=== PATIENT | male | born 1965 | race Caucasian/White ===

== ENCOUNTER 2022-03-26 06:24 | Day surgery (SDC) | payer OTHER, SELFPAY ==
[2022-03-26 06:36] VITALS: BMI 35.2
[2022-03-26 06:39] VITALS: BP 142/87; PULSE 76; RESP 18; TEMP 36.3; O2SAT 95
[2022-03-26] MEDS: Lactated Ringers 1,000 ML 50 ML IVCONT (06:53)
--- NOTE | 2022-03-26 07:26 | P.CONAN_ITS ---
HPI - Anesthesia Eval Consult details Narrative: For [facility] Active Problems Active Problems: All Active Problems (Updated 07/30/21 @ 15:09 by Codey Munoz MD) Physical exam (Acute) Hypertension (Acute) Hyperlipidemia (Acute) Obesity (Acute) Family History Family history of problems with anesthesia: No Surgical History Surgical History (Updated 03/25/22 @ 10:14 by Elaine Grant RN) S/P correction of deviated nasal septum History of Problems with Anesthesia: No Social History Social History Housing: House Patient Tobacco Use Status: Never used Tobacco e-Cigarette/Vaping Use: Never Used Second Hand Smoke Exposure: No Use of substances other than those prescribed or required for medical reasons: No Are you DNR?: No Advance Directives: No Advance Directives Information Provided: Yes Recently lost weight without trying: No How much weight loss: 2-13 pounds Nutrition Risks: No Nutritional Risk service: No Current occupational status: employed Cognitive needs: No Hearing needs: No Vision needs: No Meds Allergies Allergy/AdvReac Type Severity Reaction Status Date / Time Bees Allergy Unknown anaphylaxis Uncoded 07/30/21 14:25 Active Medications: Current Medications Lactated Ringer's (Lr) 1,000 mls @ 50 mls/hr IVCONT .Q20H IMAN Last Admin: 03/26/22 06:53 Dose: 50 mls/hr Sodium Biphosphate/Sodium Phosphate (Sodium Phosphate,[place]o-Dibasic 133 Ml Enema) 133 ml SD ONCE PRN PRN Reason: Poor Colonoscopy Prep Results Exam Exam Date and Time: March 26, 2022 0726 Height,Weight and Vital Signs: Height 5 ft 10 in Weight 111.13 kg Last Vital Signs Temp 97.4 F 03/26/22 06:39 Pulse 76 03/26/22 06:39 Resp 18 03/26/22 06:39 BP 142/87 H 03/26/22 06:39 Pulse Ox 95 03/26/22 06:39 O2 Del Method 03/26/22 06:39 Airway Mallampati Class: III TM Dist: <=3cm Neck ROM: Full Heart: ok Lungs: ok Assessment and Plan Assessment Anesthesia Assessment: Anesthesia Plan Discussed and Chart Reviewed Final Anesthetic Review Family History of Problems with Anesthesia: No History of Problems with Anesthesia: No NPO: Yes ASA Class: II Final Preanesthetic Review: No Changes in Pt Med Stat, Meds/Allgs Chart Reviewed, Consent Obtained/Reviewed and Anes Risks/Benef Reviewed Patient Risk: Intermediate Procedure Risk: Low Anesthetic Plan Anesthetic Plan: MAC: and Agree w/ Assess. and Plan Disposition: Standard PACU
--- NOTE | 2022-03-26 08:25 | PM.OP ---
Brief Operative Note Date of Service: 03/26/22 Pre-op diagnosis: Screening Post-op diagnosis: other (Polyps) Procedure: Colonoscopy to the cecum with biopsy and removal of polyps Surgeon: Joseph Coronel Anesthesia: MAC Was an Digital Music Instructor used for this Procedure?: No Estimated blood loss (mL): 2.0 Pathology: other (A. Polyp at 60cm B. Transverse colon polyp) Condition: stable Disposition: PACU
[2022-03-26 08:27] VITALS: BP 114/70; PULSE 84; RESP 18; TEMP 36.2; O2SAT 95
[2022-03-26 08:42] VITALS: BP 126/77; PULSE 74; RESP 20; TEMP 36.5; O2SAT 95
--- NOTE | 2022-03-26 09:29 | OP_ITS ---
SURGEON: Joseph Coronel MD INDICATIONS: The patient presents for evaluation of colorectal cancer screening. Full consent has been obtained from him for this, including risks of bleeding and perforation. PREOPERATIVE DIAGNOSIS: Colorectal cancer screening. POSTOPERATIVE DIAGNOSIS: PROCEDURE PERFORMED: Colonoscopy to the cecum with biopsy and removal of polyps. ESTIMATED BLOOD LOSS: COMPLICATIONS: ANESTHESIA: Monitored anesthesia care. ASSISTANTS: SPECIMENS: POSTOPERATIVE DIAGNOSES: Colorectal cancer screening, small colon polyps, mild sigmoid diverticulosis, small internal hemorrhoids. PROCEDURE IN DETAIL: The patient was placed in the left lateral decubitus position. The digital rectal exam revealed no abnormalities. The Olympus video pediatric colonoscope was entered into the rectum and advanced easily to the cecum. Once in the cecum, I did identify a normal-appearing cecal pouch with appendiceal orifice and a normal appearing ileocecal valve. The entire cecum appeared normal. The scope was slowly withdrawn assessing all mucosal surfaces carefully. Preparation was excellent. In the transverse colon and at 60 cm were less than 5 mm polyps, which were each biopsied and removed completely with a cold biopsy forceps. I did not visualize any other polyps, colitis, nor angiodysplasia. There was a mild amount of sigmoid diverticulosis. In the rectum, scope was retroflexed, visualizing small internal hemorrhoids but no other pathology. The rectal mucosa appeared normal. The scope was straightened and withdrawn from the patient. He tolerated the procedure well and was returned to the recovery area in stable condition. IMPRESSION: 1. Small colon polyps. 2. Diverticulosis. 3. Internal hemorrhoids. PLAN: The results of the pathology will be checked. If these are tubular adenomas, I would recommend a followup colonoscopy in 5 years. If they are only hyperplastic, I would recommend a followup colonoscopy in 10 years. He will otherwise see me on a p.r.n. basis. MD EVELYNE Crawford/HAJA / [id number] JOSH
== END 2022-03-26 08:58 | disposition home or self-care (01) ==
PROVIDERS: PCP Internal Medicine; Visit Provider Internal Medicine
PROC: 0DJD8ZZ Inspection of Lower Intestinal Tract, Via Natural or Artificial Opening Endoscopic (ICD-10-PCS; CPT 45378; principal; 2022-03-26 07:30)
DX: Z12.11 Encounter for screening for malignant neoplasm of colon (principal); D12.3 Benign neoplasm of transverse colon; K63.5 Polyp of colon; K57.30 Diverticulosis of large intestine without perforation or abscess without bleeding; K64.8 Other hemorrhoids; I10 Essential (primary) hypertension; E78.5 Hyperlipidemia, unspecified; Z79.899 Other long term (current) drug therapy
CPT/HCPCS: 45380; 88305

== ENCOUNTER 2022-10-01 08:51 | Outpatient (AMB) | payer OTHER, SELFPAY ==
--- NOTE | 2022-10-01 08:52 | A.OFFPC_ITS ---
Vital Signs 10/01/22 08:54 Height 5 ft 10 in Weight 255 lb 4 oz BMI 36.6 BP 120/70 Blood Pressure Location Lt brachial Position Sitting Pulse 79 Pulse Source Pulse Oximeter Pulse Oximetry (%) 93 Oxygen Delivery Method Room Air Intake Visit Reasons: Annual PE Intake Note: Patient is here today for a physical. Django Developer Required: No Residential Subcontractor: Not Required per policy Accompanied by: Self / Same As Patient Allergies Bees Allergy (Unknown, Uncoded 10/01/22 08:54) anaphylaxis Medication List - Last Reconciled 10/01/22 by Codey Munoz MD fenofibrate 160 mg PO DAILY valsartan 40 mg PO BID Tobacco use date assessed: 10/01/22 Dental Screening Dental Screen Date: 10/01/22 Did you have a dental visit in the last 12 months?: Yes Did you have a dental problem in the last 6 months where you did not have access to dental care?: No Was dental information given to patient?: Patient has dentist HPI Annual PE HPI Details HTN and hyperlipidemia PFSH Surgical History (Updated 10/01/22 @ 08:[address]) History of colonoscopy S/P correction of deviated nasal septum Social History (Updated 10/01/22 @ 08:[address]) Housing: House Alcohol intake: current Alcohol intake frequency: a few times a week Patient Tobacco Use Status: Never used Tobacco e-Cigarette/Vaping Use: Never Used Second Hand Smoke Exposure: No service: No Current occupational status: employed Cognitive needs: No Hearing needs: No Vision needs: No Questionnaire PHQ-9 Over the last 2 weeks, how often have you been bothered by any of the following problems? 1. Little interest or pleasure in doing things: not at all 2. Feeling down, depressed, or hopeless: not at all 3. Trouble falling or staying asleep, or sleeping too much: not at all 4. Feeling tired or having little energy: not at all 5. Poor appetite or overeating: not at all 6. Feeling bad about yourself - or that you are a failure or have let yourself or your family down: not at all 7. Trouble concentrating on things, such as reading the newspaper or watching television: not at all 8. Moving or speaking so slowly that other people could have noticed. Or the opposite - being so fidgety or restless that you have been moving around a lot more than usual: not at all 9. Thoughts that you would be better off or of hurting yourself in some way: not at all Total score: 0 Depression Screening Interpretation: Negative [id number] - PHQ-9 Billing: Yes Source: Developed by Drs. Joseph Mccloud, Safia Payan, Glenroy Denis and colleagues, with an educational tamia from [employer]. Thrive Questionnaire Date Thrive assessed: 10/01/22 I am a: Patient What is your living situation today?: I have a steady place to live Within the past 12 months, did the food you bought not last and you didn't have the money to get more?: Never true Within the past 12 months, did you worry whether your food would run out before you got money to buy more?: Never true Do you have trouble paying for medicines?: No Do you have trouble getting transportation to medical appointments?: No Do you have trouble paying your heating and electricity bill?: No Do you have trouble taking care of your child, family member or friend?: No Do you have trouble with day-to-day activities such as bathing, preparing meals, shopping, managing finances, etc.?: No Are you currently unemployed and looking for a job?: No Are you interested in more education?: No Currently or been in a relationship where the following occur: no concerns reported AUDIT C Alcohol Use Questionnaire (AUDIT-C) 1. How often do you have a drink containing alcohol?: 2-3 times a week 2. How many drinks containing alcohol do you have on a typical day when you are drinking?: 1 or 2 Total Score: 3 NINO-7 AMB Questionnaire NINO-7 Date NINO - 7 assessed: 10/01/22 Feeling nervous, anxious, or on edge: 0 = Not at all Not being able to stop or control worryin = Not at all Worrying too much about different things: 0 = Not at all Trouble relaxin = Not at all Being so restless that it is hard to sit still: 0 = Not at all Becoming easily annoyed or irritable: 0 = Not at all Feeling afraid as if something awful might happen: 0 = Not at all Total NINO-7 score (0-4 normal; 5-9 mild; 10-14 moderate; 15-21 severe): 0 Source: Developed by Drs. Joseph Mccloud, Safia Payan, Glenroy Denis and colleagues, with an educational tamia from [employer]. NINO-7 Assessment Billing NINO-7 Assessment Tool: NINO-7 Assessment 88584 Review of Systems Const Denies chills, Denies fatigue, Denies headache(s) and Denies weight loss Eyes Denies change in vision, Denies diplopia and Denies eye pain ENT Denies vertigo, Denies dizziness, Denies headache(s) and Denies nasal discharge Card Denies chest pain, Denies rapid heart rate and Denies dyspnea on exertion Resp Denies chest congestion, Denies cough, Denies pain with cough and Denies dyspnea on exertion GI Denies abdominal pain, Denies hematochezia and Denies change in bowel habits Musc Denies myalgias, Denies arthralgias and Denies joint swelling Skin/Breast Denies lesions and Denies unusual bruising Neuro Denies vertigo, Denies dizziness, Denies headache(s) and Denies focal weakness Endo Denies fatigue Physical exam (Primary Care) Vital Signs: Last Vital Signs Pulse 79 10/01/22 08:54 BP 120/70 10/01/22 08:54 Pulse Ox 93 10/01/22 08:54 Oxygen Delivery Method Room Air 10/01/22 08:54 BMI result Body Mass Index 36.6 obesity BMI Assessment/Plan discussion: High BMI High, discussed plan: lifestyle, weight reduction, dietary and physical activity Tobacco/Smoking Status: Tobacco use Status Tobacco use date assessed 10/01/22 10/01/22 08:59 Patient Tobacco Use Status Never used Tobacco 10/01/22 08:57 e-Cigarette/Vaping Use Never Used 10/01/22 08:57 PHQ-9: PHQ-9 Score PHQ-9: Total score 0 10/01/22 08:59 Depression Screening Interpretation: Negative Thrive Assessment: Date of Thrive Assessment Date Thrive assessed 10/01/22 10/01/22 08:59 Currently or been in a relationship where the following occur: no concerns reported Const General: cooperative, healthy appearing and no acute distress Orientation/consciousness: oriented to person, oriented to place and oriented to time HENMT Head: Yes normal to inspection, Yes normocephalic and Yes atraumatic Mouth: Normal oral and palatal mucosa present and tongue normal Throat: Yes posterior oropharynx normal and Yes uvula midline Eyes General: appearance normal, both eyes and all related structures Neck Neck: Yes normal visual inspection, Yes full ROM and Yes no lymphadenopathy Thyroid: Thyroid normal Carotids: normal carotid upstroke Chest Chest palpation & inspection: normal inspection of the chest Resp Effort & Inspection: normal respiratory effort and able to speak in complete sentences Auscultation: clear to auscultation bilaterally Cardio Jugular venous distension: no JVD Palpation: normal PMI Rate: regular rate Rhythm: regular rhythm Heart sounds: S1 normal heart sound present and S2 normal heart sound present GI Inspection: Yes normal to inspection Palpation (GI): Soft to palpation and No hepatosplenomegaly present Auscultation: normal bowel sounds General: Yes no CVA tenderness Back/Spine/Pelvis Back: no CVA tenderness Skin General skin exam: no rashes or lesions noted Neuro General: oriented to person, oriented to place and oriented to time Extrem General: Yes normal to inspection and Yes full ROM Assessment and Plan Assessment & Plan (1) Physical exam: Code(s): Z00.00 - Encounter for general adult medical examination without abnormal findings Plan: do labs (2) Hypertension: Code(s): I10 - Essential (primary) hypertension Plan: stable; same rx (3) Hyperlipidemia: Code(s): E78.5 - Hyperlipidemia, unspecified Plan: stable; same rx (4) Obesity: Code(s): E66.9 - Obesity, unspecified Plan: as above Orders: Orders Comprehensive [place]. Panel Fast Today N28.9 - Disorder of kidney and ureter, unspecified Lipid Panel Today E78.5 - Hyperlipidemia, unspecified Complete Blood Count Auto Diff Today D64.9 - Anemia, unspecified Medications: Refilled fenofibrate 160 mg PO DAILY 90 tabs 8RF Coding Level of Care Code Est Pt Prev Care 40-64y(44350) Diagnoses Physical exam Z00.00 Hypertension I10 Hyperlipidemia E78.5 Obesity E66.9 Additional Codes NINO-7 Assessment Billing - NINO-7 Assessment Tool: NINO-7 Assessment [id number] ([id number])
[2022-10-01 08:54] VITALS: BP 120/70; PULSE 79; O2SAT 93; BMI 36.6
== END 2022-10-01 09:12 | disposition home or self-care (01) ==
PROVIDERS: PCP Internal Medicine; Visit Provider Internal Medicine
DX: Z00.00 Encounter for general adult medical examination without abnormal findings (principal); I10 Essential (primary) hypertension; E78.5 Hyperlipidemia, unspecified; Z68.36 Body mass index [BMI] 36.0-36.9, adult; E66.9 Obesity, unspecified
CPT/HCPCS: 99396

== ENCOUNTER 2023-11-02 10:04 | Outpatient (AMB) | payer OTHER, SELFPAY ==
[2023-11-02 10:06] VITALS: BP 142/94; PULSE 80; O2SAT 97; BMI 36.9
--- NOTE | 2023-11-02 10:06 | A.OFFPC_ITS ---
Vital Signs 11/02/23 10:06 Height 5 ft 10 in Weight 257 lb BMI 36.9 BP 142/94 H Blood Pressure Location Lt brachial Position Sitting Pulse 80 Pulse Source Pulse Oximeter Pulse Oximetry (%) 97 Oxygen Delivery Method Room Air Intake Visit Reasons: Annual Exam Desk Interviewer Required: No Accompanied by: Self / Same As Patient Allergies Bees Allergy (Unknown, Uncoded 11/02/23 10:06) anaphylaxis Medication List - Last Reconciled 11/02/23 by Codey Munoz MD fenofibrate 160 mg PO DAILY valsartan 40 mg PO BID Tobacco use date assessed: 11/02/23 Dental Screening Dental Screen Date: 11/02/23 Did you have a dental visit in the last 12 months?: No Did you have a dental problem in the last 6 months where you did not have access to dental care?: No Was dental information given to patient?: Patient has dentist HPI Annual Exam HPI Details hypertension and hyperlipidemia on rx; doing well and compliant [facility] Surgical History (Updated 10/01/22 @ 08:[address]) History of colonoscopy S/P correction of deviated nasal septum Social History (Updated 10/01/22 @ 08:[address]) Housing: House Alcohol intake: current Alcohol intake frequency: a few times a week Patient Tobacco Use Status: Never used Tobacco Tobacco use type: Cigarette e-Cigarette/Vaping Use: Never Used Second Hand Smoke Exposure: No service: No Current occupational status: employed Cognitive needs: No Hearing needs: No Vision needs: No Questionnaire PHQ-9 Over the last 2 weeks, how often have you been bothered by any of the following problems? 1. Little interest or pleasure in doing things: not at all 2. Feeling down, depressed, or hopeless: not at all 3. Trouble falling or staying asleep, or sleeping too much: not at all 4. Feeling tired or having little energy: not at all 5. Poor appetite or overeating: not at all 6. Feeling bad about yourself - or that you are a failure or have let yourself or your family down: not at all 7. Trouble concentrating on things, such as reading the newspaper or watching television: not at all 8. Moving or speaking so slowly that other people could have noticed. Or the opposite - being so fidgety or restless that you have been moving around a lot more than usual: not at all 9. Thoughts that you would be better off or of hurting yourself in some way: not at all Total score: 0 Source: Developed by Drs. Joseph Mccloud, Safia Payan, Glenroy Denis and colleagues, with an educational tamia from [employer]. Thrive Questionnaire Date Thrive assessed: 11/02/23 I am a: Patient What is your living situation today?: I have a steady place to live Within the past 12 months, did the food you bought not last and you didn't have the money to get more?: Never true Within the past 12 months, did you worry whether your food would run out before you got money to buy more?: Never true Do you have trouble paying for medicines?: No Do you have trouble getting transportation to medical appointments?: No Do you have trouble paying your heating and electricity bill?: No Do you have trouble taking care of your child, family member or friend?: No Do you have trouble with day-to-day activities such as bathing, preparing meals, shopping, managing finances, etc.?: No Are you currently unemployed and looking for a job?: No Are you interested in more education?: No Please select the resources that you would like help with: None Currently or been in a relationship where the following occur: No concerns reported THRIVE Score: 0 AUDIT C Alcohol Use Questionnaire (AUDIT-C) 1. How often do you have a drink containing alcohol?: 2-4 times a month 2. How many drinks containing alcohol do you have on a typical day when you are drinking?: 3 or 4 3. How often do you have six or more drinks on one occasion?: Monthly Total Score: 5 NINO-7 AMB Questionnaire NINO-7 Date NINO - 7 assessed: 11/02/23 Feeling nervous, anxious, or on edge: 0 = Not at all Not being able to stop or control worryin = Not at all Worrying too much about different things: 0 = Not at all Trouble relaxin = Not at all Being so restless that it is hard to sit still: 0 = Not at all Becoming easily annoyed or irritable: 0 = Not at all Feeling afraid as if something awful might happen: 0 = Not at all Total NINO-7 score (0-4 normal; 5-9 mild; 10-14 moderate; 15-21 severe): 0 Source: Developed by Drs. Joseph Mccloud, Safia Payan, Glenroy Denis and colleagues, with an educational tamia from [employer]. Review of Systems Const Denies chills, Denies fatigue, Denies headache(s) and Denies weight loss Eyes Denies change in vision, Denies diplopia and Denies eye pain ENT Denies vertigo, Denies dizziness, Denies headache(s) and Denies nasal discharge Card Denies chest pain, Denies rapid heart rate and Denies dyspnea on exertion Resp Denies chest congestion, Denies cough, Denies pain with cough and Denies dyspnea on exertion GI Denies abdominal pain, Denies hematochezia and Denies change in bowel habits Musc Denies myalgias, Denies arthralgias and Denies joint swelling Skin/Breast Denies lesions and Denies unusual bruising Neuro Denies vertigo, Denies dizziness, Denies headache(s) and Denies focal weakness Endo Denies fatigue Physical exam (Primary Care) Vital Signs: Last Vital Signs Pulse 80 11/02/23 10:06 BP 142/94 H 11/02/23 10:06 Pulse Ox 97 11/02/23 10:06 Oxygen Delivery Method Room Air 11/02/23 10:06 BMI result Body Mass Index 36.9 Tobacco/Smoking Status: Tobacco use Status Tobacco use date assessed 11/02/23 11/02/23 10:07 Patient Tobacco Use Status Never used Tobacco 11/02/23 10:07 Tobacco use type Cigarette 11/02/23 10:07 e-Cigarette/Vaping Use Never Used 11/02/23 10:07 PHQ-9: PHQ-9 Score PHQ-9: Total score 0 11/02/23 10:07 Thrive Assessment: Date of Thrive Assessment Date Thrive assessed 11/02/23 11/02/23 10:07 Currently or been in a relationship where the following occur: No concerns reported Const General: cooperative, healthy appearing and no acute distress Orientation/consciousness: oriented to person, oriented to place and oriented to time HENMT Head: Yes normal to inspection, Yes normocephalic and Yes atraumatic Mouth: Normal oral and palatal mucosa present and tongue normal Throat: Yes posterior oropharynx normal and Yes uvula midline Eyes General: appearance normal, both eyes and all related structures Neck Neck: Yes normal visual inspection, Yes full ROM and Yes no lymphadenopathy Thyroid: Thyroid normal Carotids: normal carotid upstroke Chest Chest palpation & inspection: normal inspection of the chest Resp Effort & Inspection: normal respiratory effort and able to speak in complete sentences Auscultation: clear to auscultation bilaterally Cardio Jugular venous distension: no JVD Palpation: normal PMI Rate: regular rate Rhythm: regular rhythm Heart sounds: S1 normal heart sound present and S2 normal heart sound present GI Inspection: Yes normal to inspection Palpation (GI): Soft to palpation and No hepatosplenomegaly present Auscultation: normal bowel sounds General: Yes no CVA tenderness Back/Spine/Pelvis Back: no CVA tenderness Skin General skin exam: no rashes or lesions noted Neuro General: oriented to person, oriented to place and oriented to time Extrem General: Yes normal to inspection and Yes full ROM Assessment and Plan Assessment & Plan (1) Physical exam: Code(s): Z00.00 - Encounter for general adult medical examination without abnormal findings Plan: stable; do labs (2) Hypertension: Code(s): I10 - Essential (primary) hypertension Plan: stable; same rx (3) Hyperlipidemia: Code(s): E78.5 - Hyperlipidemia, unspecified Plan: stable; same rx Orders: Orders Comprehensive [place]. Panel Fast Today Z13.9 - Encounter for screening, unspecified Prostate Specific Antigen Scr Today Z00.00 - Encounter for general adult medical examination without abnormal findings Lipid Panel Today Z13.220 - Encounter for screening for lipoid disorders Thyroid Stimulating Hormone Today Z13.29 - Encounter for screening for other suspected endocrine disorder Complete Blood Count Auto Diff Today Z13.0 - Encounter for screening for diseases of the blood and blood-forming organs and certain disorders involving the immune mechanism Coding Level of Care Code Est Pt Prev Care 40-64y(17014) Diagnoses Physical exam Z00.00 Hypertension I10 Hyperlipidemia E78.5
== END 2023-11-02 10:29 | disposition home or self-care (01) ==
PROVIDERS: PCP Internal Medicine; Visit Provider Internal Medicine
DX: Z00.00 Encounter for general adult medical examination without abnormal findings (principal); I10 Essential (primary) hypertension; E78.5 Hyperlipidemia, unspecified
CPT/HCPCS: 99396

== ENCOUNTER 2023-11-02 10:38 | Outpatient (REF) | payer OTHER, SELFPAY ==
[2023-11-02 13:10] LABS: MANUAL DIFF FLAG NO
[2023-11-02 13:11] LABS: Basophils Absolute Auto 0.1 X10*3/uL (0.0-0.2); Eosinophils Absolute Auto 0.2 X10*3/uL (0.0-0.4); Eosinophils Percent Auto 4.3 % (0-4); Hematocrit 41.4 % (42.0-52.0); Hemoglobin 14.2 g/dl (14.0-18.0); Imm Gran Abs Auto 0.02 X10*3/uL (0.00-0.03); Imm Gran Pct Auto 0.4 % (0.0-0.4); Lymphocytes Absolute Auto 1.4 X10*3/uL (1.2-4.9); Mean Corpuscular HGB Conc 34.3 g/dl (31.0-36.0); Mean Corpuscular Hemoglobin 32.1 pg (27.0-33.0); Mean Corpuscular Volume 93.5 fL (80.0-98.0); Mean Platelet Volume 9.2 fL (9.4-12.4); Monocytes Absolute Auto 0.7 X10*3/uL (0.1-1.2); Monocytes Percent Auto 13.4 % (2-11); Neutrophils Absolute Auto 2.6 x10*3/uL (2.0-8.3); Neutrophils Percent Auto 51.9 % (45-73); Platelet Count 278 X10*3/uL (160-400); Red Blood Count 4.43 X10*6/uL (4.60-5.80); Red Cell Distribution Width 11.9 % (11.0-16.0); White Blood Count 4.9 X10*3/uL (4.8-10.8)
[2023-11-02 13:36] LABS: Alanine Aminotransferase 19 U/L (0-40); Albumin Level 4.2 g/dL (3.5-5.0); Alkaline Phosphatase 32 U/L (39-117); Anion Gap 12 (12-20); Aspartate Amino Transferase 16 U/L (5-37); Bilirubin Total 0.4 mg/dL (0.0-1.0); Blood Urea Nitrogen 17 mg/dL (9-16); Calcium 9.5 mg/dL (8.4-10.2); Carbon Dioxide 26 mmol/L (22-29); Chloride 105 mmol/L (96-108); Cholesterol 170 mg/dL (<200); Estimated Glomerular Filt Rate > 60; Glucose Fasting 122 mg/dL (60-99); HDL Cholesterol 39 mg/dL (>40); LDL Cholesterol Calculated 87 mg/dL (<100); Potassium 4.4 mmol/L (3.3-5.1); Sodium 139 mmol/L (135-145); Total Protein 7.4 g/dL (6.5-8.0); Triglycerides 223 mg/dL (<150)
[2023-11-02 13:47] LABS: Prostate Specific Antigen Scr 1.12 ng/mL (<0.05-4.0)
[2023-11-02 13:51] LABS: Thyroid Stimulating Hormone 1.95 uIU/mL (0.32-4.0)
== END 2023-11-02 10:39 | disposition home or self-care (01) ==
LOC: HO.10HDL 10:38
PROVIDERS: Visit Provider Internal Medicine
DX: Z00.00 Encounter for general adult medical examination without abnormal findings (principal); Z12.5 Encounter for screening for malignant neoplasm of prostate; Z13.6 Encounter for screening for cardiovascular disorders; Z13.220 Encounter for screening for lipoid disorders; Z13.29 Encounter for screening for other suspected endocrine disorder; Z13.0 Encounter for screening for diseases of the blood and blood-forming organs and certain disorders involving the immune mechanism; Z13.9 Encounter for screening, unspecified
CPT/HCPCS: 36415; 80053; 80061; 84153; 84443; 85025

== ENCOUNTER 2024-11-05 08:50 | Outpatient (AMB) | payer OTHER, SELFPAY ==
--- NOTE | 2024-11-05 08:53 | A.OFFPC_ITS ---
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 Accompanied by: Self / Same As Patient Allergies Bees Allergy (Unknown, Uncoded 11/02/23 10:06) anaphylaxis Tobacco use date assessed: 11/02/23 Dental Screening Dental Screen Date: 11/05/24 Did you have a dental visit in the last 12 months?: No Did you have a dental problem in the last 6 months where you did not have access to dental care?: No Was dental information given to patient?: Patient has dentist [facility] Surgical History History of colonoscopy S/P correction of deviated nasal septum Social History Housing: House Alcohol intake: current Alcohol intake frequency: a few times a week Patient Tobacco Use Status: Never used Tobacco Tobacco use type: Cigarette e-Cigarette/Vaping Use: Never Used Second Hand Smoke Exposure: No service: No Current occupational status: employed Cognitive needs: No Hearing needs: No Vision needs: No Questionnaire PHQ-9 Over the last 2 weeks, how often have you been bothered by any of the following problems? 1. Little interest or pleasure in doing things: not at all 2. Feeling down, depressed, or hopeless: not at all 3. Trouble falling or staying asleep, or sleeping too much: not at all 4. Feeling tired or having little energy: not at all 5. Poor appetite or overeating: not at all 6. Feeling bad about yourself - or that you are a failure or have let yourself or your family down: not at all 7. Trouble concentrating on things, such as reading the newspaper or watching television: not at all 8. Moving or speaking so slowly that other people could have noticed. Or the opposite - being so fidgety or restless that you have been moving around a lot more than usual: not at all 9. Thoughts that you would be better off or of hurting yourself in some way: not at all Total score: 0 38086 - PHQ-9 Daring: Yes Source: Developed by Drs. Joseph Mccloud, Safia Payan, Glenroy Denis and colleagues, with an educational tamia from [employer]. Thrive Questionnaire Date Thrive assessed: 11/05/24 I am a: Patient What is your living situation today?: I have a steady place to live Within the past 12 months, did the food you bought not last and you didn't have the money to get more?: Never true Within the past 12 months, did you worry whether your food would run out before you got money to buy more?: Never true Do you have trouble paying for medicines?: No Do you have trouble getting transportation to medical appointments?: No Do you have trouble paying your heating and electricity bill?: No Do you have trouble taking care of your child, family member or friend?: No Do you have trouble with day-to-day activities such as bathing, preparing meals, shopping, managing finances, etc.?: No Are you currently unemployed and looking for a job?: No Are you interested in more education?: No Please select the resources that you would like help with: None Currently or been in a relationship where the following occur: No concerns reported THRIVE Score: 0 AUDIT C Alcohol Use Questionnaire (AUDIT-C) 1. How often do you have a drink containing alcohol?: 2-3 times a week 2. How many drinks containing alcohol do you have on a typical day when you are drinking?: 3 or 4 Total Score: 4 NINO-7 AMB Questionnaire NINO-7 Date NINO - 7 assessed: 11/05/24 Feeling nervous, anxious, or on edge: 0 = Not at all Not being able to stop or control worryin = Not at all Worrying too much about different things: 0 = Not at all Trouble relaxin = Not at all Being so restless that it is hard to sit still: 0 = Not at all Becoming easily annoyed or irritable: 0 = Not at all Feeling afraid as if something awful might happen: 0 = Not at all Total NINO-7 score (0-4 normal; 5-9 mild; 10-14 moderate; 15-21 severe): 0 Source: Developed by Safia Porter Kurt Kroenke and colleagues, with an educational tamia from [employer]. NINO-7 Assessment Billing NINO-7 Assessment Tool: NINO-7 Assessment 35160 Physical exam (Primary Care) Tobacco/Smoking Status: Tobacco use Status Tobacco use date assessed 11/02/23 11/02/23 10:07 Patient Tobacco Use Status Never used Tobacco 11/02/23 10:07 Tobacco use type Cigarette 11/02/23 10:07 e-Cigarette/Vaping Use Never Used 11/02/23 10:07 Thrive Assessment: Date of Thrive Assessment Date Thrive assessed 11/02/23 11/02/23 10:07 Currently or been in a relationship where the following occur: No concerns reported Coding Additional Codes PHQ-9 - 56096 - PHQ-9 Billing: Yes ([id number]) NINO-7 Assessment Billing - NINO-7 Assessment Tool: NINO-7 Assessment 91462 ([id number])
[2024-11-05 08:54] VITALS: BP 158/90; PULSE 73; RESP 18; TEMP 36.9; O2SAT 94; BMI 38.3
--- NOTE | 2024-11-05 09:06 | A.OFFPC_ITS ---
Vital Signs 11/05/24 08:54 Height 5 ft 10 in Weight 267 lb 2 oz BMI 38.3 BP 158/90 H Blood Pressure Location Lt brachial Position Sitting Respiration 18 Pulse 73 Temp 98.5 F Temp Source Oral Pulse Oximetry (%) 94 Oxygen Delivery Method Room Air Intake Visit Reasons: ARTEM LAIERNESTINE/Physical exam Allergies Bees Allergy (Unknown, Uncoded 11/05/24 09:07) anaphylaxis Tobacco use date assessed: 11/02/23 Dental Screening Dental Screen Date: 11/05/24 Did you have a dental visit in the last 12 months?: No Did you have a dental problem in the last 6 months where you did not have access to dental care?: No Was dental information given to patient?: Patient has dentist HPI ARTEM VIDHYA/Physical exam HPI Details Presenting for Annual physical and transition of care from Dr. Munoz Dentist:up to date Eye:reports that he did not do the Snellen: Right: Left: Corrected vision: yes -cheaters STI screening: Colonoscopy: 2022-repeat in 5 years Pap Smer:n/a PHQ-9: Flu: not really COVID: x3 Tdap:Due-given in office today Diet: regular Exercise:Reports being too busy at work and unable to workout The patient is a 59-year-old male presenting for a wellness visit and management of chronic conditions. The patient has a history of hypertension, with blood pressure readings fluctuating significantly. He reports that his blood pressure was 117/[address] a friend's place, but it has been elevated during today's visit. The patient is currently on valsartan, which he took this morning, and fenofibrate for hypertriglyceridemia. The patient has hypertriglyceridemia, with previous levels in the 500s, now trending downwards. He is on fenofibrate to manage this condition. The patient is slightly anemic, with red blood cells 4.43 and Hct 41.4. He reports allergies and has experienced nasal fractures multiple times due to accidents, which may contribute to his snoring. The patient has received a tetanus vaccination today as part of his preventative care. [facility] Surgical History History of colonoscopy S/P correction of deviated nasal septum Social History Housing: House Alcohol intake: current Alcohol intake frequency: a few times a week Patient Tobacco Use Status: Never used Tobacco Tobacco use type: Cigarette e-Cigarette/Vaping Use: Never Used Second Hand Smoke Exposure: No service: No Current occupational status: employed Cognitive needs: No Hearing needs: No Vision needs: No Questionnaire PHQ-9 Over the last 2 weeks, how often have you been bothered by any of the following problems? 1. Little interest or pleasure in doing things: not at all 2. Feeling down, depressed, or hopeless: not at all 3. Trouble falling or staying asleep, or sleeping too much: not at all 4. Feeling tired or having little energy: not at all 5. Poor appetite or overeating: not at all 6. Feeling bad about yourself - or that you are a failure or have let yourself or your family down: not at all 7. Trouble concentrating on things, such as reading the newspaper or watching television: not at all 8. Moving or speaking so slowly that other people could have noticed. Or the opposite - being so fidgety or restless that you have been moving around a lot more than usual: not at all 9. Thoughts that you would be better off or of hurting yourself in some way: not at all Total score: 0 Depression Screening Interpretation: Negative Depression Screening Done: Yes 57856 - PHQ-9 Billing: Yes Source: Developed by Drs. Joseph Mccloud, Safia Payan, Glenroy Denis and colleagues, with an educational tamia from [employer]. Thrive Questionnaire Date Thrive assessed: 11/05/24 I am a: Patient What is your living situation today?: I have a steady place to live Within the past 12 months, did the food you bought not last and you didn't have the money to get more?: Never true Within the past 12 months, did you worry whether your food would run out before you got money to buy more?: Never true Do you have trouble paying for medicines?: No Do you have trouble getting transportation to medical appointments?: No Do you have trouble paying your heating and electricity bill?: No Do you have trouble taking care of your child, family member or friend?: No Do you have trouble with day-to-day activities such as bathing, preparing meals, shopping, managing finances, etc.?: No Are you currently unemployed and looking for a job?: No Are you interested in more education?: No Please select the resources that you would like help with: None Currently or been in a relationship where the following occur: No concerns reported THRIVE Score: 0 AUDIT C Alcohol Use Questionnaire (AUDIT-C) 1. How often do you have a drink containing alcohol?: 2-3 times a week 2. How many drinks containing alcohol do you have on a typical day when you are drinking?: 3 or 4 Total Score: 4 Score Reviewed/Action Taken: Yes NINO-7 AMB Questionnaire NINO-7 Date NINO - 7 assessed: 11/05/24 Feeling nervous, anxious, or on edge: 0 = Not at all Not being able to stop or control worryin = Not at all Worrying too much about different things: 0 = Not at all Trouble relaxin = Not at all Being so restless that it is hard to sit still: 0 = Not at all Becoming easily annoyed or irritable: 0 = Not at all Feeling afraid as if something awful might happen: 0 = Not at all Total NINO-7 score (0-4 normal; 5-9 mild; 10-14 moderate; 15-21 severe): 0 Source: Developed by Drs. Joseph Mccloud, Safia Payan, Glenroy walters nd colleagues, with an educational tamia from [employer]. NINO-7 Assessment Billing NINO-7 Assessment Tool: NINO-7 Assessment 60242 Review of Systems Const Denies headache(s) Eyes Denies loss of vision ENT Denies vertigo, Denies dizziness, Denies headache(s) and Denies sore throat Card Denies chest pain, Denies leg edema and Denies lightheadedness Resp Denies cough, Denies hemoptysis and Denies wheezing GI Denies abdominal pain, Denies melena, Denies constipation, Denies diarrhea and Denies vomiting Denies dysuria, Denies urinary frequency and Denies urinary urgency Musc Denies arthralgias, Denies joint swelling, Denies numbness and Denies tingling Neuro Denies Abnormal speech present, Denies behavioral changes, Denies vertigo, Denies dizziness, Denies headache(s), Denies loss of vision, Denies memory loss, Denies numbness and Denies tingling Psych Denies anxiety, Denies behavioral changes, Denies depression, Denies memory loss and Denies panic attacks Erick/Lymph Denies easy bleeding and Denies easy bruising Aller/Immun Denies wheezing Physical exam (Primary Care) Vital Signs: Last Vital Signs Temp 98.5 F 11/05/24 08:54 Pulse 73 11/05/24 08:54 Resp 18 11/05/24 08:54 BP 158/90 H 11/05/24 08:54 Pulse Ox 94 11/05/24 08:54 Oxygen Delivery Method Room Air 11/05/24 08:54 BMI result Body Mass Index 38.3 Tobacco/Smoking Status: Tobacco use Status Tobacco use date assessed 11/02/23 11/05/24 09:10 Patient Tobacco Use Status Never used Tobacco 11/05/24 09:10 Tobacco use type Cigarette 11/05/24 09:10 e-Cigarette/Vaping Use Never Used 11/05/24 09:10 PHQ-9: PHQ-9 Score PHQ-9: Total score 0 11/05/24 09:10 Depression Screening Interpretation: Negative Thrive Assessment: Date of Thrive Assessment Date Thrive assessed 11/05/24 11/05/24 09:10 Currently or been in a relationship where the following occur: No concerns reported Const General: healthy appearing, no acute distress, alert and awake Nutritional Appearance: well nourished Orientation/consciousness: oriented to person, oriented to place and oriented to time HENMT Ears: TM's normal bilaterally General nose exam: Normal nasal mucous membranes and turbinates present Eyes Conjunctivae: conjunctivae normal Sclerae: sclerae normal Pupils: Equal, round and reactive pupils present Neck Neck: Yes no lymphadenopathy and Yes no JVD Thyroid: Thyroid normal Carotids: no bruits Resp Effort & Inspection: normal respiratory effort and not tachypneic Auscultation: no crackles, no rales, no rhonchi and no wheezes Cardio Rate: regular rate Rhythm: regular rhythm Heart sounds: no murmurs and normal S1 and S2 GI Palpation (GI): Soft to palpation, nontender, no hepatomegaly and no splenomegaly Auscultation: normal bowel sounds Skin General skin exam: no rashes or lesions noted and dry skin Neuro General: oriented to person, oriented to place and oriented to time Cranial nerves: Yes Equal, round and reactive pupils present Speech: No Abnormal speech present Gait exam (Neuro): Normal gait present Motor exam (neuro): no tremor noted Deep tendon reflexes (DTR's): Right triceps reflex intensity grade: 2+, Left triceps reflex intensity grade: 2+, Rt Biceps (C5, C6): 2+, Left biceps reflex intensity grade: 2+, Right brachioradialis reflex intensity grade: 2+, Left brachioradialis reflex intensity grade: 2+, Right patellar reflex intensity grade: 2+ and Left patellar reflex intensity grade: 2+ Extrem Right upper extremity: full ROM Left upper extremity: full ROM Right lower extremity: full ROM; no edema Left lower extremity: full ROM; no edema Psych Mental Status: mental status grossly normal Speech and movement: Normal speech and movement present Affect: normal affect Attitude: cooperative Thought process: Normal thought process present Coding Level of Care Code New Pt Prev Care 40-64y(71986) Diagnoses Physical exam Z00.00 Class 2 severe obesity with serious comorbidity and body mass index (BMI) of 38.0 to 38.9 in adult, unspecified obesity type E66.812; E66.01; Z68.38 Obesity type: unspecified obesity type Obesity classification: adult class 2 (BMI 35 - 39.9) Serious obesity comorbidity presence: with serious comorbidity Body mass index: BMI 38.0-38.9 Pure hypertriglyceridemia E78.1 Hyperlipidemia type: pure hypertriglyceridemia Hypertension, unspecified type I10 Hypertension type: unspecified Anemia, unspecified type D64.9 Anemia type: unspecified type Additional Codes PHQ-9 - 17918 - PHQ-9 Billing: Yes ([id number]) NINO-7 Assessment Billing - NINO-7 Assessment Tool: NINO-7 Assessment 93734 ([id number]) Time Spent (min) 35 Assessment & Plan Assessment & Plan (1) Physical exam: Code(s): Z00.00 - Encounter for general adult medical examination without abnormal findings Category: Medical Plan: 59-year-old male here for physical. Reviewed preventative guidelines and previous labs from 2023. New labs order for patient to complete as soon as he can. The patient had a colonoscopy in 2022 and is scheduled to repeat in 2027. Tdap given in office today (2) Obesity: Code(s): E66.9 - Obesity, unspecified Category: Medical Qualifiers: Obesity type: unspecified obesity type Obesity classification: adult class 2 (BMI 35 - 39.9) Serious obesity comorbidity presence: with serious comorbidity Body mass index: BMI 38.0-38.9 Qualified Code(s): E66.812 - Obesity, class 2; E66.01 - Morbid (severe) obesity due to excess calories; Z68.38 - Body mass index [BMI] 38.0-38.9, adult Plan: Encouraged to exercise for at least 30 minutes a day/5 days a week Healthy eating discussed. Encouraged to eat fruits/vegetables, protein- fish/baked chicken, and to avoid salty/fried foods, sweets, caffeine and carbohydrates. Encouraged to increase water intake 6-8 glasses a day (3) Hyperlipidemia: Code(s): E78.5 - Hyperlipidemia, unspecified Category: Medical Qualifiers: Hyperlipidemia type: pure hypertriglyceridemia Qualified Code(s): E78.1 - Pure hyperglyceridemia Plan: The patient is on fenofibrate for hypertriglyceridemia, with triglyceride levels previously in the 500s, now trending downwards. Continued monitoring of triglyceride levels was advised. Triglycerides 223 on 11/02/2023. We will repeat lipid panel marky (4) Hypertension: Code(s): I10 - Essential (primary) hypertension Category: Medical Qualifiers: Hypertension type: unspecified Qualified Code(s): I10 - Essential (primary) hypertension Plan: The patient's blood pressure was noted to be elevated during the visit, despite being on valsartan. A follow-up appointment was scheduled in a week for a blood pressure check with the nurse to monitor the situation. Reinforced low-salt diet, low alcohol and low caffeine intake. Continue valsartan 40 mg b.i.d. (5) Anemia: Code(s): D64.9 - Anemia, unspecified Category: Medical Qualifiers: Anemia type: unspecified type Qualified Code(s): D64.9 - Anemia, unspecified Plan: Slightly anemic on previous labs in 2023. We will add a B12 and folate to labs to further evaluate. Orders: Orders Comprehensive [place]. Panel Fast Today D64.9 - Anemia, unspecified, E66.9 - Obesity, unspecified, E78.5 - Hyperlipidemia, unspecified, I10 - Essential (primary) hypertension, Z00.00 - Encounter for general adult medical examination without abnormal findings TSH reflex Free T4 Today D64.9 - Anemia, unspecified, E66.9 - Obesity, unspecified, E78.5 - Hyperlipidemia, unspecified, I10 - Essential (primary) hypertension, Z00.00 - Encounter for general adult medical examination without abnormal findings Lipid Panel Today D64.9 - Anemia, unspecified, E66.9 - Obesity, unspecified, E78.5 - Hyperlipidemia, unspecified, I10 - Essential (primary) hypertension, Z00.00 - Encounter for general adult medical examination without abnormal findings Hemoglobin A1c Today D64.9 - Anemia, unspecified, E66.9 - Obesity, unspecified, E78.5 - Hyperlipidemia, unspecified, I10 - Essential (primary) hypertension, Z00.00 - Encounter for general adult medical examination without abnormal findings Td Immunization Today Z23 - Encounter for immunization Complete Blood Count Auto Diff Today D64.9 - Anemia, unspecified, E66.9 - Obesity, unspecified, E78.5 - Hyperlipidemia, unspecified, I10 - Essential (primary) hypertension, Z00.00 - Encounter for general adult medical examination without abnormal findings Vitamin B12 and Folate Today D64.9 - Anemia, unspecified, E66.9 - Obesity, unspecified, E78.5 - Hyperlipidemia, unspecified, I10 - Essential (primary) hypertension, Z00.00 - Encounter for general adult medical examination without abnormal findings Vitamin D 25-OH Total Today D64.9 - Anemia, unspecified, E66.9 - Obesity, unspecified, E78.5 - Hyperlipidemia, unspecified, I10 - Essential (primary) hypertension, Z00.00 - Encounter for general adult medical examination without abnormal findings UA CC w/rflx Micro + Cult Today D64.9 - Anemia, unspecified, E66.9 - Obesity, unspecified, E78.5 - Hyperlipidemia, unspecified, I10 - Essential (primary) hypertension, Z00.00 - Encounter for general adult medical examination without abnormal findings Medications: Refilled valsartan 40 mg PO BID 180 tabs 3RF fenofibrate 160 mg PO DAILY 90 tabs 3RF
--- OUTSIDE RECORDS SUMMARY | 2024-11-05 10:07 | XMS_ITS | Patient Health Record ---
Author Organization [facility] Address [address] [place] [id number] Care Team Providers Care Delinquent Account Clerk Name Role Phone Codey Munoz MD Primary Care Provider Joseph Power Unavailable [phone] Allergies Allergen (clinical drug ingredient) Drug/Non Drug Allergy documented on EMR Reaction Allergy Type Onset Date Status bee pollen Bee Pollen Unknown Drug Allergy Activ e Reason For Referral No Information Medications Medication SIG (Take, Route, Fr equency, Duration) Notes Start Date End Date Status Fenofibrate 160 MG TAKE 1 TABLET BY YESENIA TH EVERY DAY Oral for 90 Active Valsartan 40 MG Oral for 90 Ac tive Immunizations Vaccine Route Administration Date Status Comme nts Influenza Unknown 01/26/2022 Refused Social History Tobacco Use: Social History Observation Description Date Details (start date - stop date) Never Smoker NA - NA Tobacco Use/Smoking Question Answer Notes Patient is a nonsmoker Alcohol Screen Question Answer Notes Did you have a drink contain ing alcohol in the past year? Yes How often did you have a dri nk containing alcohol in the past year? Monthly or less (1 point) How many drinks did you have on a typical day when you were drinking in the past year? 1 or 2 drinks (0 point) How often did you have 6 or more drinks on one occasion in the past year? Never (0 point) Points 1 Interpretation Negative Section Notes: Occ. alcohol; nonsmoker Problems Problem Type SNOMED Code ICD Code Onset Dates Problem Status W/U Status Risk Notes Problem Screening for malignant neoplasm of colon (487727706) Encounter for screening for malignant neoplasm of colon (Z12.11) Active confirmed Problem Diverticular disease of colon (993271155) Diverticulosis of large intestine without perforation or abscess without bleeding (K57.30) Active confirmed Problem Preprocedural examination ([id number]) Preprocedural examination (Z01.818) Active confirmed Plan Of Treatment Future Test Test Name Order Date COLONOSCOPY 01/26/2022 Insurance Providers Payer Name Payer Address Payer Phone Subscriber Number Group Number Insured Name Patient Relationship to Insured Coverage Start Date Coverage End Date [facility] [employer] [address] [place] [address] [id number] [facility] Self - patient is the insured Medical (General) History Medical History History ICD Code Denies VA,DM,CVA,Lung disease,renal dise ase HTN Describes a negative colonoscopy at age 36 at [facility] Hyperlipidemia Surgical History Surgery Date(Month/Year) Deviated septum repair x 2
== END 2024-11-05 09:36 | disposition home or self-care (01) ==
LOC: HO.HMCH 08:51
DX: Z00.00 Encounter for general adult medical examination without abnormal findings (principal); E66.812 Obesity, class 2; E66.01 Morbid (severe) obesity due to excess calories; Z68.38 Body mass index [BMI] 38.0-38.9, adult; E78.1 Pure hyperglyceridemia; I10 Essential (primary) hypertension; D64.9 Anemia, unspecified; Z23 Encounter for immunization

== ENCOUNTER → 2024-11-05 08:50 | Outpatient (BNVA) | payer OTHER, SELFPAY | PROVIDERS: PCP Internal Medicine | DX: Z00.00 Encounter for general adult medical examination without abnormal findings (principal); I10 Essential (primary) hypertension; E78.1 Pure hyperglyceridemia; D64.9 Anemia, unspecified; E78.5 Hyperlipidemia, unspecified; E66.812 Obesity, class 2; E66.01 Morbid (severe) obesity due to excess calories; Z68.38 Body mass index [BMI] 38.0-38.9, adult; Z23 Encounter for immunization | CPT/HCPCS: 90471; 90714; 96127 ==

== ENCOUNTER 2024-11-23 11:11 | Outpatient (REF) | payer OTHER, SELFPAY ==
[2024-11-23 13:51] LABS: MANUAL DIFF FLAG NO
[2024-11-23 13:55] LABS: Hematocrit 43.4 % (42.0-52.0); Hemoglobin 14.9 g/dl (14.0-18.0); Imm Gran Abs Auto 0.03 X10*3/uL (0.00-0.03); Imm Gran Pct Auto 0.5 % (0.0-0.4); Lymphocytes Absolute Auto 1.5 X10*3/uL (1.2-4.9); Mean Corpuscular HGB Conc 34.3 g/dl (31.0-36.0); Mean Corpuscular Hemoglobin 31.6 pg (27.0-33.0); Mean Corpuscular Volume 92.1 fL (80.0-98.0); NRBC Abs Auto 0.000 X10*3/uL (0.0-0.012); NRBC Pct Auto 0.0 /100WBC (0.0-0.2); Platelet Count 278 X10*3/uL (160-400); Red Blood Count 4.71 X10*6/uL (4.60-5.80); White Blood Count 5.5 X10*3/uL (4.8-10.8)
[2024-11-23 14:10] LABS: Appearance Urine Clear; Glucose Urine UA Negative (Negative); PH 5.5 (5.0-9.0); Specific Gravity - Urine 1.020 (1.005-1.025)
[2024-11-23 14:46] LABS: Alanine Aminotransferase 30 U/L (0-40); Albumin Level 4.6 g/dL (3.5-5.0); Alkaline Phosphatase 36 U/L (39-117); Anion Gap 10 (12-20); Aspartate Amino Transferase 28 U/L (5-37); Blood Urea Nitrogen 17 mg/dL (9-16); Calcium 9.8 mg/dL (8.4-10.2); Carbon Dioxide 27 mmol/L (22-29); Chloride 104 mmol/L (96-108); Cholesterol 190 mg/dL (<200); Estimated Glomerular Filt Rate > 60; HDL Cholesterol 38 mg/dL (>40); Potassium 4.3 mmol/L (3.3-5.1); Sodium 137 mmol/L (135-145); Total Protein 7.6 g/dL (6.5-8.0); Triglycerides 225 mg/dL (<150)
[2024-11-23 14:48] LABS: Folate 18.3 ng/mL (> or = 4.0); Vitamin B12 555 pg/mL (200-900)
== END 2024-11-23 11:12 | disposition home or self-care (01) ==
LOC: HO.10HDL 11:11
DX: Z00.00 Encounter for general adult medical examination without abnormal findings (principal); Z13.1 Encounter for screening for diabetes mellitus; I10 Essential (primary) hypertension; E78.5 Hyperlipidemia, unspecified; E66.9 Obesity, unspecified; D64.9 Anemia, unspecified
CPT/HCPCS: 36415; 80053; 80061; 81003; 82306; 82607; 82746; 83036; 84443; 85025